=== PATIENT | male | born 1940 | race Caucasian/White ===

== ENCOUNTER 2016-05-24 14:40 | Outpatient (CLI) | payer MEDICARE ==
[2016-05-24 14:58] LABS: Blood, Urine Trace (Negative); Glucose, Urine (Dipstick) 100 mg/dL (Negative); Ketone, Urine 15 mg/dL (Negative); Nitrite Negative (Negative); Protein, Urine (Dipstick) 30 mg/dL (Neg-Trace)
[2016-05-24 15:00] LABS: Bilirubin Positive (Negative)
[2016-05-24 15:11] LABS: Bacteria/HPF Rare-Few HPF (None Seen); RBC/HPF 0-3 HPF (0-3)
[2016-05-24 15:17] LABS: ALT (SGPT) 202 U/L (0-55); AST (SGOT) 329 U/L (5-34); Alkaline Phosphatase 1103 U/L (40-150); Anion Gap 15 mmol/L (10-20); BUN (Urea Nitrogen) 15 mg/dL (8.4-25.7); Bilirubin, Total 10.5 mg/dL (0.2-1.2); CK (CPK) 13 U/L (30-200); Calc. Creatinine Clearance 0 mL/min (70-130); Calcium 9.4 mg/dL (7.8-10.44); Carbon Dioxide 26 mmol/L (23-31); Chloride 96 mmol/L (98-107); Estimated GFR-MDRD Greater than 90; Globulin 4.7 g/dL (2.4-3.5); Lipase 12 U/L (8-78); Protein, Total 7.6 g/dL (5.8-8.1)
[2016-05-24 15:22] LABS: #Basophils 0.2 thou/uL (0.0-0.2); #Eosinphils 0.1 thou/uL (0.0-0.7); #Lymphocytes 1.5 thou/uL (1.20-3.40); #Monocytes 0.7 thou/uL (0.11-0.59); #Neutrophils 17.5 thou/uL (1.40-6.50); %Basophils 0.8 % (0.0-1.0); %Eosinophils 0.5 % (0.0-10.0); %Monocytes 3.3 % (0.0-10.0); Hematocrit 37.5 % (42.0-52.0); Mean Platelet Volume 9.2 fL (7.4-10.4); Red Blood Cell (RBC) Count 3.37 mill/uL (4.70-6.10); White Blood Cell (WBC) Count 19.9 thou/uL (4.8-10.8)
[2016-05-24 21:18] LABS: Stomatocytes SLIGHT = 2-5 cells (100X) (0-1/hpf)
== END 2016-05-24 14:41 ==
LOC: HPCALD 14:40
PROVIDERS: ATTEND Family Medicine
DX: R10.13 Epigastric pain (principal); R82.99 Other abnormal findings in urine
CPT/HCPCS: 36415; 80053; 81001; 82550; 83690; 85025; 86677

== ENCOUNTER 2016-06-25 16:06 | Outpatient (CLI) | payer MEDICARE ==
[2016-06-25 16:57] LABS: ALT (SGPT) 28 U/L (0-55); AST (SGOT) 59 U/L (5-34); Albumin 3.6 g/dL (3.4-4.8); Alkaline Phosphatase 230 U/L (40-150); Anion Gap 17 mmol/L (10-20); BUN (Urea Nitrogen) 13 mg/dL (8.4-25.7); Bilirubin, Total 1.5 mg/dL (0.2-1.2); Calc. Creatinine Clearance 0 mL/min (70-130); Calcium 8.7 mg/dL (7.8-10.44); Carbon Dioxide 26 mmol/L (23-31); Chloride 99 mmol/L (98-107); Estimated GFR-MDRD Greater than 90; Globulin 3.6 g/dL (2.4-3.5); Glucose 141 mg/dL (83-110); Potassium 4.2 mmol/L (3.5-5.1); Protein, Total 7.2 g/dL (5.8-8.1); Sodium 138 mmol/L (136-145)
[2016-06-25 21:09] LABS: #Basophils 0.1 thou/uL (0.0-0.2); #Eosinphils 0.1 thou/uL (0.0-0.7); #Lymphocytes 1.7 thou/uL (1.20-3.40); #Monocytes 0.6 thou/uL (0.11-0.59); #Neutrophils 5.2 thou/uL (1.40-6.50); %Basophils 1.8 % (0.0-1.0); %Eosinophils 0.8 % (0.0-10.0); %Lymphocytes 21.7 % (21.0-51.0); %Monocytes 7.4 % (0.0-10.0); %Neutrophils 68.4 % (42.0-75.0); Hemoglobin 15.5 g/dL (14.0-18.0); MDiff Complete? YES; Macrocytosis SLIGHT = 6-15 cells (100X) (0-5/hpf); Mean Corpuscular HGB CONC 33.3 g/dL (32.0-36.0); Mean Corpuscular Hemoglobin 37.5 pg (27.0-31.0); Mean Platelet Volume 10.1 fL (7.4-10.4); PLT Morphology Comment Appears Adequate; Platelet Count 147 thou/uL (130-400); RBC Distribution Width 12.8 % (11.5-14.5); Red Blood Cell (RBC) Count 4.13 mill/uL (4.70-6.10); White Blood Cell (WBC) Count 7.6 thou/uL (4.8-10.8)
== END 2016-06-25 16:07 ==
LOC: HPCALD 16:06
PROVIDERS: ATTEND Family Medicine
DX: E80.6 Other disorders of bilirubin metabolism (principal); D72.829 Elevated white blood cell count, unspecified; R74.0 Nonspecific elevation of levels of transaminase and lactic acid dehydrogenase [LDH]
CPT/HCPCS: 36415; 80053; 85025

== ENCOUNTER 2018-05-06 14:52 | Inpatient (IN) | payer MEDICARE ==
[2018-05-06] MEDS ORDERED: Metoclopramide HCl 10 MG TAB PO PRN (17:52)
[2018-05-06] MEDS: Fluticasone Propionate Nasal Spray 16 gm Bottle NASAL SCH (22:03)
[2018-05-06] MEDS: Sotalol HCl 80 MG TAB PO SCH (22:04)
[2018-05-06] MEDS: Atorvastatin Calcium 40 MG TAB PO SCH (22:04)
[2018-05-06] MEDS: Lisinopril 20 MG TAB PO SCH (22:06)
[2018-05-06] MEDS: Famotidine 20 MG TAB PO SCH (22:06)
--- NOTE | 2018-05-07 01:36 | HP ---
CHIEF COMPLAINT: Need for skilled physical and occupational therapy. HISTORY OF PRESENT ILLNESS: Mr. Joel is a 78-year-old male with a past medical history of alcoholism, possible cirrhosis of the liver; deconditioning; and atrial fibrillation, who presented to [facility] on April 21, 2018, complaining of vomiting, nausea, weakness, and multiple falls at home. He was unable to take care of his activities of daily living and came to the ER for evaluation. He was found to be dehydrated and in atrial fibrillation with RVR. In addition, he had evidence of alcoholic hepatitis with elevated liver function tests and thrombocytopenia. The patient was admitted and given IV fluids, thiamine, and folic acid and did have some signs of alcohol withdrawal, which necessitated the use of Librium. His rate was controlled with his home regimen, which consisted of sotalol and diltiazem. However, on April 27, Code Green was activated as the patient had been progressively deteriorating overnight and an ABG showed acute respiratory acidosis with hypercapnic and hypoxic respiratory failure. He was placed on BiPAP, given steroids, antibiotics, and DuoNebs, and Pulmonology was consulted to ultimately intubated the patient for acute respiratory failure with hypercarbia and hypoxemia and the etiology of this decompensation was unclear. He was evaluated by Dr. Peterson Garcia and was able to extubate successfully. He is suspected to have COPD and from a respiratory standpoint, stabilized and is to see Pulmonology since he necessitated CCU admission in the next couple of weeks. In addition, the patient was evaluated by Cardiology and had a new echocardiogram performed on April 28 that showed LVEF 25% to 30% and he was deemed to have acute on chronic systolic heart failure. He apparently has been stabilized with Lasix 20 mg p.o. on a p.r.n. basis, beta-bety, and FAISAL inhibitor. He was evaluated by EP Cardiology and was deemed not a candidate for an ablation or an AICD unless he remains abstinent from alcohol. The patient initially was held off aspirin secondary to his thrombocytopenia. However, this resolved and so this was restarted at 325 mg daily. He also had some electrolyte abnormalities with potassium and magnesium, which were repleted. During his admission, he also had some redness developed to his sacral region without skin breakdown. He also has a similar area to one of his heels. He is also to follow up with Cardiology in a couple of weeks after his discharge, Dr. Roman. PAST MEDICAL HISTORY: 1. Alcohol abuse. 2. History of alcoholic hepatitis. 3. Cirrhosis of liver with a recent ultrasound showing hepatomegaly and decreased echogenicity. 4. Atrial fibrillation. 5. Recent history of acute respiratory failure that was suspected drug-induced delirium versus hyperammonemia. 6. Coronary artery disease. 7. COPD. 8. Systolic congestive heart failure/cardiomyopathy with echo as per HPI. 9. Hypertension. 10. Hyperlipidemia. 11. History of tobacco abuse. 12. 1.6 cm right renal cyst. PAST SURGICAL HISTORY: 1. History of stent x1 in 1998 to the coronary artery. 2. Cholecystectomy. FAMILY HISTORY: Noncontributory to this case. SOCIAL HISTORY: The patient admits to alcohol use, but claims this is "a little." He apparently was drinking enough at home to have alcohol withdrawal during the admission that resolved. He also has a history of cigar smoking. Denies illicit drug use. He lives alone. ALLERGIES: NO KNOWN DRUG ALLERGIES. MEDICATIONS: 1. Amlodipine 5 mg p.o. daily. 2. Aspirin 325 mg p.o. daily. 3. Atorvastatin calcium 40 mg p.o. at bedtime. 4. Cyanocobalamin 1000 mcg p.o. daily. 5. Diltiazem CD 120 mg p.o. daily. 6. Famotidine 20 mg p.o. b.i.d. 7. Fluticasone one spray b.i.d. per nostril. 8. Folic acid 0.8 mg p.o. daily. 9. DuoNeb q.4 hours. 10. Zestril 20 mg b.i.d. 11. Magnesium oxide 400 mg p.o. daily. 12. Metoclopramide 5 mg p.o. q.4 hours p.r.n. 13. Potassium chloride 20 mEq p.o. b.i.d. 14. Propylene glycol eyedrops one drop in each eye daily. 15. Sotalol 40 mg p.o. b.i.d. 16. Thiamine 100 mg p.o. daily. 17. Tramadol 50 mg p.o. q.6 hours p.r.n. REVIEW OF SYSTEM: CONSTITUTIONAL: Positive fatigue. Denies malaise or recent weight loss. No fever or chills. EYES: No blurred vision or eye discharge. ENT: He had some rhinorrhea at admission, but this is resolved. Denies sore throat. He reports a recent fracture of his jaw on both sides, that broke his dentures and reports some discomfort with that, but is having no trouble swallowing or chewing his food at this time. CARDIOVASCULAR: He had some chest pain initially when he was admitted, but denies any recent chest pain, orthopnea, or swelling. GI: He did have some abdominal pain with a decrease in his appetite, but this has resolved during the course of his admission. He denies diarrhea, constipation, nausea, vomiting, melena, or hematochezia. MUSCULOSKELETAL: Again, the patient reports recent jaw fracture. Denies any other joint pain. He apparently has not been able to ambulate as of yet, but previously ambulated at home with walker assist. GENITOURINARY: The patient denies any dysuria or urinary retention or voiding abnormality. HEMATOLOGIC: The patient with recent history of thrombocytopenia at that time of his admission, which has essentially resolved over the course of his hospitalization. DERMATOLOGIC: The patient has had no reported rashes. PHYSICAL EXAMINATION: VITAL SIGNS: Temperature 97.7, heart rate 74, respirations 16, O2 saturation 97% on room air, and blood pressure 160/72. GENERAL: Well-developed, thin male, in no acute distress. Alert; oriented to person, place, time, and situation; and pleasant. His speech is slightly slurred secondary to lack of dentures but he has no stuttering. HEENT: Pupils are equally round and reactive to light and accommodation, extraocular muscles are intact. Nares are patent without discharge. Tongue protrudes in the midline. NECK: Supple without lymphadenopathy, thyromegaly, JVD, or bruit. HEART: Regularly irregular with normal S1, S2. No murmurs, clicks, rubs, or gallops. LUNGS: With good air entry bilaterally and clear to auscultation. No crackles or wheezes. No increased work of breathing. ABDOMEN: Positive bowel sounds in all four quadrants. Soft, nontender, and nondistended. No masses, guarding, or rebound tenderness. EXTREMITIES: No cyanosis, clubbing, or edema. SKIN: Multiple petechia and bruising to the bilateral upper extremities without hematoma or warmth. NEUROLOGIC: Cranial nerves 2 through 12 are grossly intact without obvious focal deficits. The patient with generalized weakness. LABORATORY DATA: Most recent CBC collected today; white count 12.0, which is decreasing over time, the highest of which was 15.8 on May 04; hemoglobin 10.9, which is stable; and platelets 183 with differential. Coags done on April 22 with a normal PT, INR, and PTT. Sodium 139, potassium 3.8, chloride 101, bicarb 27, BUN 23, creatinine 0.66, glucose 146, calcium 8.5, and magnesium 1.3. Hepatitis screen performed on April 22, 2018, was nonreactive. The patient had urine culture on April 21 and blood culture x2 at that time, that were negative for growth. DIAGNOSTIC STUDIES: Last chest x-ray was performed on May 01 and showed mild worsening effusions and pulmonary edema. Abdominal ultrasound performed on April 21 showed postop cholecystectomy change. Heterogeneous-appearing liver. 1.6 cm right renal cyst. ASSESSMENT AND PLAN: 1. Generalized weakness/physical deconditioning. The patient will be admitted for skilled rehab, which will include physical and occupational therapy and a dietary consult. We will also consult Speech Therapy due to his lack of dentures and slurred speech. 2. History of heavy alcohol abuse. The patient has had Librium on a p.r.n. basis, but his period for withdrawal seems to be over at this time. We will strongly litigation counsel the patient not to resume alcohol at the time of his discharge should he be able to return home. 3. Hypertension. The patient will be continued on his current regimen. 4. Atrial fibrillation. The patient will be continued on his sotalol and his Cardizem. 5. Congestive heart failure. The patient will be continued on his lisinopril. We will order weights every other day with notification for 3-pound or more weight gain in 24 hours or a 5-pound or more weight gain in one week. We will order Lasix p.r.n. 6. Hypokalemia. We will continue his potassium and monitor his lab. 7. Hypomagnesemia. We will repeat magnesium level in a few days and continue with supplementation. 8. Chronic obstructive pulmonary disease. The patient will be continued on his DuoNebs. 9. Hyperlipidemia. The patient will be continued on his statin. 10. Coronary artery disease. Again, the patient has been able to resume his aspirin now as his platelets have improved and will be continued on his statin. He currently is off beta bety for reasons unclear, but we will continue his FAISAL inhibitor. 11. Nutritional deficiencies. The patient will be continued on his vitamin B12, thiamine, and his multivitamin. 12. Stage I pressure ulcer of sacrum and heel. We will order a waffle mattress for the patient and turn regularly. 13. Prophylaxis. The patient will be placed on SCDs and his Pepcid will be continued. 14. Code status. The patient thoroughly refuses any further attempts at intubation should that occur; therefore, has been made a do not resuscitate. This has also been discussed with the patient's son. 15. At the time of his discharge, the patient will need to be set up with Cardiology and Pulmonology for followup. Job ID: [id number]
[2018-05-07] MEDS: Folic Acid 1 MG TAB PO SCH (09:23)
[2018-05-07] MEDS: Thiamine 100 MG TAB PO SCH (09:23)
[2018-05-07] MEDS: Lisinopril 20 MG TAB PO SCH ×2 (09:23→20:56)
[2018-05-07] MEDS: Potassium Chloride 20 MEQ TAB PO SCH ×2 (09:23→16:22)
[2018-05-07] MEDS: Famotidine 20 MG TAB PO SCH ×2 (09:23→20:55)
[2018-05-07] MEDS: Aspirin 325 MG TAB PO SCH (09:23)
[2018-05-07] MEDS: Magnesium Oxide 400 MG TAB PO SCH (09:24)
[2018-05-07] MEDS: Amlodipine 5 MG TAB PO SCH (09:24)
[2018-05-07] MEDS: Sotalol HCl 80 MG TAB PO SCH ×2 (09:24→20:55)
[2018-05-07] MEDS: Fluticasone Propionate Nasal Spray 16 gm Bottle NASAL SCH ×2 (09:25→22:31)
[2018-05-07] MEDS: Cyanocobalamin (Vitamin B-12) 1,000 MCG TAB PO SCH (09:26)
[2018-05-07] MEDS: Polyethylene Glycol OPTH DROP 15 ML BOT EA EYE SCH (10:47)
[2018-05-07] MEDS: Atorvastatin Calcium 40 MG TAB PO SCH (20:55)
[2018-05-08] MEDS: Lisinopril 20 MG TAB PO SCH ×3 (01:21→21:02)
[2018-05-08 04:58] LABS: Anion Gap 14 mmol/L (10-20); BUN (Urea Nitrogen) 19 mg/dL (8.4-25.7); Calc. Creatinine Clearance 62 mL/min (70-130); Calcium 8.8 mg/dL (7.8-10.44); Carbon Dioxide 26 mmol/L (23-31); Chloride 100 mmol/L (98-107); Estimated GFR-MDRD Greater than 90; Glucose 72 mg/dL (83-110); Magnesium 1.2 mg/dL (1.6-2.6); Potassium 3.8 mmol/L (3.5-5.1); Sodium 136 mmol/L (136-145)
[2018-05-08] MEDS: Fluticasone Propionate Nasal Spray 16 gm Bottle NASAL SCH ×2 (09:59→21:02)
[2018-05-08] MEDS: Amlodipine 5 MG TAB PO SCH (10:01)
[2018-05-08] MEDS: Sotalol HCl 80 MG TAB PO SCH ×2 (10:02→21:00)
[2018-05-08] MEDS: Magnesium Oxide 400 MG TAB PO SCH (10:04)
[2018-05-08] MEDS: Famotidine 20 MG TAB PO SCH ×2 (10:04→21:01)
[2018-05-08] MEDS: Thiamine 100 MG TAB PO SCH (10:04)
[2018-05-08] MEDS: Potassium Chloride 20 MEQ TAB PO SCH ×2 (10:04→17:30)
[2018-05-08] MEDS: Folic Acid 1 MG TAB PO SCH (10:04)
[2018-05-08] MEDS: Aspirin 325 MG TAB PO SCH (10:05)
[2018-05-08] MEDS: Polyethylene Glycol OPTH DROP 15 ML BOT EA EYE SCH (10:05)
[2018-05-08] MEDS: Cyanocobalamin (Vitamin B-12) 1,000 MCG TAB PO SCH (14:40)
[2018-05-08] MEDS: traMADol HCl 50 MG TAB PO PRN (20:59)
[2018-05-08] MEDS: Atorvastatin Calcium 40 MG TAB PO SCH (21:02)
[2018-05-09] MEDS: Potassium Chloride 20 MEQ TAB PO SCH ×2 (08:58→17:32)
[2018-05-09] MEDS: Polyethylene Glycol OPTH DROP 15 ML BOT EA EYE SCH (08:58)
[2018-05-09] MEDS: Famotidine 20 MG TAB PO SCH ×2 (08:59→20:52)
[2018-05-09] MEDS: Folic Acid 1 MG TAB PO SCH (08:59)
[2018-05-09] MEDS: Cyanocobalamin (Vitamin B-12) 1,000 MCG TAB PO SCH (08:59)
[2018-05-09] MEDS: Magnesium Oxide 400 MG TAB PO SCH ×2 (08:59→20:43)
[2018-05-09] MEDS: Fluticasone Propionate Nasal Spray 16 gm Bottle NASAL SCH ×2 (09:00→20:52)
[2018-05-09] MEDS: Aspirin 325 MG TAB PO SCH (09:00)
[2018-05-09] MEDS: Thiamine 100 MG TAB PO SCH (09:00)
[2018-05-09] MEDS: Amlodipine 5 MG TAB PO SCH (10:09)
[2018-05-09] MEDS: Lisinopril 20 MG TAB PO SCH ×2 (10:10→20:51)
[2018-05-09] MEDS: Sotalol HCl 80 MG TAB PO SCH ×2 (10:10→20:43)
[2018-05-09] MEDS: traMADol HCl 50 MG TAB PO PRN (17:35)
[2018-05-09] MEDS: Atorvastatin Calcium 40 MG TAB PO SCH (20:43)
[2018-05-10] MEDS: traMADol HCl 50 MG TAB PO PRN (01:18)
[2018-05-10] MEDS: Polyethylene Glycol OPTH DROP 15 ML BOT EA EYE SCH (09:10)
[2018-05-10] MEDS: Fluticasone Propionate Nasal Spray 16 gm Bottle NASAL SCH ×2 (09:10→22:31)
[2018-05-10] MEDS: Magnesium Oxide 400 MG TAB PO SCH ×2 (09:11→21:00)
[2018-05-10] MEDS: Thiamine 100 MG TAB PO SCH (09:11)
[2018-05-10] MEDS: Amlodipine 5 MG TAB PO SCH (09:12)
[2018-05-10] MEDS: Aspirin 325 MG TAB PO SCH (09:12)
[2018-05-10] MEDS: Sotalol HCl 80 MG TAB PO SCH ×2 (09:12→20:58)
[2018-05-10] MEDS: Lisinopril 20 MG TAB PO SCH ×2 (09:13→22:31)
[2018-05-10] MEDS: Folic Acid 1 MG TAB PO SCH (09:13)
[2018-05-10] MEDS: Famotidine 20 MG TAB PO SCH ×2 (09:13→21:00)
[2018-05-10] MEDS: Cyanocobalamin (Vitamin B-12) 1,000 MCG TAB PO SCH (09:13)
[2018-05-10] MEDS: Potassium Chloride 20 MEQ TAB PO SCH ×2 (09:14→16:56)
[2018-05-10] MEDS: Ibuprofen 200 MG TAB PO PRN (16:56)
[2018-05-10] MEDS: Atorvastatin Calcium 40 MG TAB PO SCH (21:00)
[2018-05-11] MEDS: Ibuprofen 200 MG TAB PO PRN ×2 (08:24→21:03)
[2018-05-11] MEDS: Lisinopril 20 MG TAB PO SCH ×2 (08:24→20:58)
[2018-05-11] MEDS: Amlodipine 5 MG TAB PO SCH (08:25)
[2018-05-11] MEDS: Aspirin 325 MG TAB PO SCH (08:25)
[2018-05-11] MEDS: Folic Acid 1 MG TAB PO SCH (08:28)
[2018-05-11] MEDS: Famotidine 20 MG TAB PO SCH ×2 (08:29→20:57)
[2018-05-11] MEDS: Magnesium Oxide 400 MG TAB PO SCH ×2 (08:29→20:57)
[2018-05-11] MEDS: Cyanocobalamin (Vitamin B-12) 1,000 MCG TAB PO SCH (08:29)
[2018-05-11] MEDS: Sotalol HCl 80 MG TAB PO SCH ×2 (08:30→20:57)
[2018-05-11] MEDS: Polyethylene Glycol OPTH DROP 15 ML BOT EA EYE SCH (08:31)
[2018-05-11] MEDS: Potassium Chloride 20 MEQ TAB PO SCH ×2 (08:31→17:04)
[2018-05-11] MEDS: Thiamine 100 MG TAB PO SCH (08:32)
[2018-05-11] MEDS: Fluticasone Propionate Nasal Spray 16 gm Bottle NASAL SCH ×2 (08:32→20:58)
[2018-05-11] MEDS: Atorvastatin Calcium 40 MG TAB PO SCH (20:57)
[2018-05-11] MEDS: traMADol HCl 50 MG TAB PO PRN (21:02)
[2018-05-12 05:37] LABS: Anion Gap 14 mmol/L (10-20); BUN (Urea Nitrogen) 12 mg/dL (8.4-25.7); Calc. Creatinine Clearance 72 mL/min (70-130); Calcium 9.6 mg/dL (7.8-10.44); Carbon Dioxide 24 mmol/L (23-31); Chloride 102 mmol/L (98-107); Estimated GFR-MDRD Greater than 90; Glucose 92 mg/dL (83-110); Magnesium 1.5 mg/dL (1.6-2.6); Potassium 4.9 mmol/L (3.5-5.1); Sodium 135 mmol/L (136-145)
[2018-05-12 05:44] LABS: #Eosinphils 0.2 thou/uL (0.0-0.7); #Lymphocytes 1.2 thou/uL (1.20-3.40); #Monocytes 0.4 thou/uL (0.11-0.59); %Basophils 0.4 % (0.0-1.0); %Eosinophils 1.9 % (0.0-10.0); %Lymphocytes 10.7 % (21.0-51.0); %Monocytes 3.3 % (0.0-10.0); %Neutrophils 83.8 % (42.0-75.0); Hemoglobin 10.5 g/dL (14.0-18.0); MDiff Complete? YES; Macrocytosis SLIGHT = 6-15 cells (100X) (0-5/hpf); Mean Corpuscular HGB CONC 32.9 g/dL (32.0-36.0); Mean Corpuscular Hemoglobin 36.1 pg (27.0-31.0); Mean Platelet Volume 13.5 fL (7.4-10.4); Neutrophil 100 % (42-75); Platelet Count 141 thou/uL (130-400); Platelet Morphology Comment Appears Decreased; RBC Distribution Width 13.9 % (11.5-14.5); White Blood Cell (WBC) Count 10.7 thou/uL (4.8-10.8)
[2018-05-12] MEDS: traMADol HCl 50 MG TAB PO PRN (09:22)
[2018-05-12] MEDS: Potassium Chloride 20 MEQ TAB PO SCH ×2 (09:35→16:30)
[2018-05-12] MEDS: Magnesium Oxide 400 MG TAB PO SCH ×2 (09:36→20:59)
[2018-05-12] MEDS: Folic Acid 1 MG TAB PO SCH (09:37)
[2018-05-12] MEDS: Sotalol HCl 80 MG TAB PO SCH ×2 (09:37→20:59)
[2018-05-12] MEDS: Thiamine 100 MG TAB PO SCH (09:37)
[2018-05-12] MEDS: Cyanocobalamin (Vitamin B-12) 1,000 MCG TAB PO SCH (09:37)
[2018-05-12] MEDS: Famotidine 20 MG TAB PO SCH ×2 (09:37→20:59)
[2018-05-12] MEDS: Lisinopril 20 MG TAB PO SCH ×2 (09:37→20:58)
[2018-05-12] MEDS: Aspirin 325 MG TAB PO SCH (09:38)
[2018-05-12] MEDS: Fluticasone Propionate Nasal Spray 16 gm Bottle NASAL SCH ×2 (09:39→20:58)
[2018-05-12] MEDS: Polyethylene Glycol OPTH DROP 15 ML BOT EA EYE SCH (09:40)
[2018-05-12] MEDS: Ibuprofen 200 MG TAB PO PRN (13:09)
[2018-05-12] MEDS: Atorvastatin Calcium 40 MG TAB PO SCH (20:58)
[2018-05-13] MEDS: Fluticasone Propionate Nasal Spray 16 gm Bottle NASAL SCH ×2 (09:02→21:06)
[2018-05-13] MEDS: Polyethylene Glycol OPTH DROP 15 ML BOT EA EYE SCH (09:03)
[2018-05-13] MEDS: Thiamine 100 MG TAB PO SCH (09:04)
[2018-05-13] MEDS: Cyanocobalamin (Vitamin B-12) 1,000 MCG TAB PO SCH (09:04)
[2018-05-13] MEDS: Famotidine 20 MG TAB PO SCH ×2 (09:04→21:07)
[2018-05-13] MEDS: Aspirin 325 MG TAB PO SCH (09:04)
[2018-05-13] MEDS: Lisinopril 20 MG TAB PO SCH ×2 (09:04→21:07)
[2018-05-13] MEDS: Magnesium Oxide 400 MG TAB PO SCH ×2 (09:04→21:07)
[2018-05-13] MEDS: Potassium Chloride 20 MEQ TAB PO SCH ×2 (09:05→16:00)
[2018-05-13] MEDS: Sotalol HCl 80 MG TAB PO SCH ×2 (09:05→21:08)
[2018-05-13] MEDS: Folic Acid 1 MG TAB PO SCH (09:05)
[2018-05-13] MEDS: traMADol HCl 50 MG TAB PO PRN (09:11)
[2018-05-13] MEDS: Ibuprofen 200 MG TAB PO PRN (16:00)
[2018-05-13] MEDS: Atorvastatin Calcium 40 MG TAB PO SCH (21:07)
[2018-05-14] MEDS: Ibuprofen 200 MG TAB PO PRN ×2 (04:06→12:20)
[2018-05-14] MEDS: Fluticasone Propionate Nasal Spray 16 gm Bottle NASAL SCH ×2 (08:32→21:11)
[2018-05-14] MEDS: Magnesium Oxide 400 MG TAB PO SCH ×2 (08:32→21:08)
[2018-05-14] MEDS: Thiamine 100 MG TAB PO SCH (08:32)
[2018-05-14] MEDS: Aspirin 325 MG TAB PO SCH (08:32)
[2018-05-14] MEDS: Polyethylene Glycol OPTH DROP 15 ML BOT EA EYE SCH (08:32)
[2018-05-14] MEDS: Famotidine 20 MG TAB PO SCH ×2 (08:32→21:08)
[2018-05-14] MEDS: Sotalol HCl 80 MG TAB PO SCH ×2 (08:33→21:08)
[2018-05-14] MEDS: Potassium Chloride 20 MEQ TAB PO SCH ×2 (08:33→17:07)
[2018-05-14] MEDS: Cyanocobalamin (Vitamin B-12) 1,000 MCG TAB PO SCH (08:33)
[2018-05-14] MEDS: Folic Acid 1 MG TAB PO SCH (08:33)
[2018-05-14] MEDS: Lisinopril 20 MG TAB PO SCH ×2 (08:35→21:08)
[2018-05-14] MEDS: traMADol HCl 50 MG TAB PO PRN (17:12)
[2018-05-14] MEDS: Atorvastatin Calcium 40 MG TAB PO SCH (21:08)
[2018-05-15] MEDS: Ibuprofen 200 MG TAB PO PRN ×2 (00:14→08:37)
[2018-05-15] MEDS: traMADol HCl 50 MG TAB PO PRN ×2 (05:27→11:40)
[2018-05-15] MEDS: Fluticasone Propionate Nasal Spray 16 gm Bottle NASAL SCH ×2 (08:36→21:00)
[2018-05-15] MEDS: Potassium Chloride 20 MEQ TAB PO SCH ×2 (08:37→17:58)
[2018-05-15] MEDS: Magnesium Oxide 400 MG TAB PO SCH ×2 (08:37→20:59)
[2018-05-15] MEDS: Polyethylene Glycol OPTH DROP 15 ML BOT EA EYE SCH (08:37)
[2018-05-15] MEDS: Sotalol HCl 80 MG TAB PO SCH ×2 (08:38→20:59)
[2018-05-15] MEDS: Folic Acid 1 MG TAB PO SCH (08:38)
[2018-05-15] MEDS: Lisinopril 20 MG TAB PO SCH ×2 (08:39→20:59)
[2018-05-15] MEDS: Aspirin 325 MG TAB PO SCH (08:41)
[2018-05-15] MEDS: Thiamine 100 MG TAB PO SCH (08:41)
[2018-05-15] MEDS: Cyanocobalamin (Vitamin B-12) 1,000 MCG TAB PO SCH (08:41)
[2018-05-15] MEDS: Famotidine 20 MG TAB PO SCH ×2 (08:41→20:59)
[2018-05-15] MEDS: Atorvastatin Calcium 40 MG TAB PO SCH (20:59)
[2018-05-16] MEDS: Ibuprofen 200 MG TAB PO PRN ×2 (05:27→15:07)
[2018-05-16] MEDS: Sotalol HCl 80 MG TAB PO SCH ×2 (08:37→20:58)
[2018-05-16] MEDS: Aspirin 325 MG TAB PO SCH (08:39)
[2018-05-16] MEDS: Folic Acid 1 MG TAB PO SCH (08:39)
[2018-05-16] MEDS: Magnesium Oxide 400 MG TAB PO SCH ×2 (08:40→20:57)
[2018-05-16] MEDS: Famotidine 20 MG TAB PO SCH ×2 (08:40→20:56)
[2018-05-16] MEDS: Thiamine 100 MG TAB PO SCH ×2 (08:40→08:41)
[2018-05-16] MEDS: Potassium Chloride 20 MEQ TAB PO SCH ×2 (08:41→17:18)
[2018-05-16] MEDS: Polyethylene Glycol OPTH DROP 15 ML BOT EA EYE SCH (08:42)
[2018-05-16] MEDS: Fluticasone Propionate Nasal Spray 16 gm Bottle NASAL SCH ×2 (08:45→20:58)
[2018-05-16] MEDS: Cyanocobalamin (Vitamin B-12) 1,000 MCG TAB PO SCH (08:47)
[2018-05-16] MEDS: Lisinopril 20 MG TAB PO SCH ×2 (08:47→20:56)
[2018-05-16 09:00] LABS: Anion Gap 13 mmol/L (10-20); BUN (Urea Nitrogen) 14 mg/dL (8.4-25.7); Calc. Creatinine Clearance 60 mL/min (70-130); Calcium 9.5 mg/dL (7.8-10.44); Carbon Dioxide 23 mmol/L (23-31); Chloride 101 mmol/L (98-107); Estimated GFR-MDRD Greater than 90; Glucose 108 mg/dL (83-110); Magnesium 1.3 mg/dL (1.6-2.6); Potassium 5.1 mmol/L (3.5-5.1); Sodium 132 mmol/L (136-145)
[2018-05-16] MEDS: traMADol HCl 50 MG TAB PO PRN ×2 (11:38→20:57)
[2018-05-16] MEDS: Atorvastatin Calcium 40 MG TAB PO SCH (20:57)
[2018-05-17] MEDS: Fluticasone Propionate Nasal Spray 16 gm Bottle NASAL SCH ×2 (09:13→21:10)
[2018-05-17] MEDS: Aspirin 325 MG TAB PO SCH (09:14)
[2018-05-17] MEDS: Sotalol HCl 80 MG TAB PO SCH ×2 (09:15→21:58)
[2018-05-17] MEDS: Thiamine 100 MG TAB PO SCH (09:16)
[2018-05-17] MEDS: Ibuprofen 200 MG TAB PO PRN ×2 (09:16→17:29)
[2018-05-17] MEDS: Famotidine 20 MG TAB PO SCH ×2 (09:16→21:10)
[2018-05-17] MEDS: Magnesium Oxide 400 MG TAB PO SCH ×2 (09:17→21:10)
[2018-05-17] MEDS: Cyanocobalamin (Vitamin B-12) 1,000 MCG TAB PO SCH (09:17)
[2018-05-17] MEDS: Folic Acid 1 MG TAB PO SCH (09:17)
[2018-05-17] MEDS: Lisinopril 20 MG TAB PO SCH ×2 (09:17→21:57)
[2018-05-17] MEDS: Potassium Chloride 20 MEQ TAB PO SCH (09:17)
[2018-05-17] MEDS: Polyethylene Glycol OPTH DROP 15 ML BOT EA EYE SCH (09:18)
[2018-05-17] MEDS: Atorvastatin Calcium 40 MG TAB PO SCH (21:10)
[2018-05-18] MEDS: Ibuprofen 200 MG TAB PO PRN ×3 (06:38→21:27)
[2018-05-18] MEDS: Famotidine 20 MG TAB PO SCH ×2 (09:50→21:27)
[2018-05-18] MEDS: Lisinopril 20 MG TAB PO SCH ×2 (09:50→21:34)
[2018-05-18] MEDS: Magnesium Oxide 400 MG TAB PO SCH ×2 (09:56→21:27)
[2018-05-18] MEDS: Aspirin 325 MG TAB PO SCH (09:56)
[2018-05-18] MEDS: Potassium Chloride 20 MEQ TAB PO SCH (09:57)
[2018-05-18] MEDS: Sotalol HCl 80 MG TAB PO SCH ×2 (09:57→21:33)
[2018-05-18] MEDS: Polyethylene Glycol OPTH DROP 15 ML BOT EA EYE SCH (09:58)
[2018-05-18] MEDS: Fluticasone Propionate Nasal Spray 16 gm Bottle NASAL SCH ×2 (09:58→21:27)
[2018-05-18] MEDS: Folic Acid 1 MG TAB PO SCH (09:59)
[2018-05-18] MEDS: Cyanocobalamin (Vitamin B-12) 1,000 MCG TAB PO SCH (09:59)
[2018-05-18] MEDS: traMADol HCl 50 MG TAB PO PRN (12:09)
[2018-05-18] MEDS: Atorvastatin Calcium 40 MG TAB PO SCH (21:27)
[2018-05-19] MEDS: traMADol HCl 50 MG TAB PO PRN ×3 (02:52→19:56)
[2018-05-19] MEDS: Ibuprofen 200 MG TAB PO PRN ×3 (05:05→22:09)
[2018-05-19] MEDS: Polyethylene Glycol OPTH DROP 15 ML BOT EA EYE SCH (10:11)
[2018-05-19] MEDS: Aspirin 325 MG TAB PO SCH (10:14)
[2018-05-19] MEDS: Sotalol HCl 80 MG TAB PO SCH ×2 (10:15→20:43)
[2018-05-19] MEDS: Lisinopril 20 MG TAB PO SCH ×2 (10:15→20:45)
[2018-05-19] MEDS: Potassium Chloride 20 MEQ TAB PO SCH (10:16)
[2018-05-19] MEDS: Thiamine 100 MG TAB PO SCH (10:16)
[2018-05-19] MEDS: Folic Acid 1 MG TAB PO SCH (10:16)
[2018-05-19] MEDS: Magnesium Oxide 400 MG TAB PO SCH ×2 (10:16→20:45)
[2018-05-19] MEDS: Cyanocobalamin (Vitamin B-12) 1,000 MCG TAB PO SCH (10:17)
[2018-05-19] MEDS: Fluticasone Propionate Nasal Spray 16 gm Bottle NASAL SCH ×2 (10:17→20:45)
[2018-05-19] MEDS: Famotidine 20 MG TAB PO SCH ×2 (11:38→20:44)
[2018-05-19] MEDS: Atorvastatin Calcium 40 MG TAB PO SCH (20:45)
[2018-05-20] MEDS: Ibuprofen 200 MG TAB PO PRN ×2 (06:26→15:39)
[2018-05-20] MEDS: Fluticasone Propionate Nasal Spray 16 gm Bottle NASAL SCH ×2 (09:00→21:56)
[2018-05-20] MEDS: Aspirin 325 MG TAB PO SCH (09:01)
[2018-05-20] MEDS: Thiamine 100 MG TAB PO SCH (09:01)
[2018-05-20] MEDS: Potassium Chloride 20 MEQ TAB PO SCH (09:01)
[2018-05-20] MEDS: Cyanocobalamin (Vitamin B-12) 1,000 MCG TAB PO SCH (09:01)
[2018-05-20] MEDS: Famotidine 20 MG TAB PO SCH ×2 (09:02→21:56)
[2018-05-20] MEDS: Magnesium Oxide 400 MG TAB PO SCH ×2 (09:02→21:56)
[2018-05-20] MEDS: Folic Acid 1 MG TAB PO SCH (09:02)
[2018-05-20] MEDS: Polyethylene Glycol OPTH DROP 15 ML BOT EA EYE SCH (09:03)
[2018-05-20] MEDS: Lisinopril 20 MG TAB PO SCH (09:03)
[2018-05-20] MEDS: Sotalol HCl 80 MG TAB PO SCH (09:03)
[2018-05-20] MEDS: traMADol HCl 50 MG TAB PO PRN (12:39)
[2018-05-20] MEDS: Acetaminophen 325 MG TAB PO PRN (21:55)
[2018-05-20] MEDS: Atorvastatin Calcium 40 MG TAB PO SCH (21:56)
[2018-05-21] MEDS: Ibuprofen 200 MG TAB PO PRN ×2 (06:08→14:38)
[2018-05-21] MEDS: Potassium Chloride 20 MEQ TAB PO SCH (09:21)
[2018-05-21] MEDS: Magnesium Oxide 400 MG TAB PO SCH ×2 (09:22→21:48)
[2018-05-21] MEDS: Famotidine 20 MG TAB PO SCH ×2 (09:22→21:48)
[2018-05-21] MEDS: Lisinopril 10 MG TAB PO SCH (09:22)
[2018-05-21] MEDS: Thiamine 100 MG TAB PO SCH (09:23)
[2018-05-21] MEDS: Cyanocobalamin (Vitamin B-12) 1,000 MCG TAB PO SCH (09:23)
[2018-05-21] MEDS: Folic Acid 1 MG TAB PO SCH (09:23)
[2018-05-21] MEDS: Aspirin 325 MG TAB PO SCH (09:23)
[2018-05-21] MEDS: Fluticasone Propionate Nasal Spray 16 gm Bottle NASAL SCH ×2 (09:24→21:48)
[2018-05-21] MEDS: Polyethylene Glycol OPTH DROP 15 ML BOT EA EYE SCH (09:24)
[2018-05-21] MEDS: Atorvastatin Calcium 40 MG TAB PO SCH (21:48)
[2018-05-21] MEDS: Acetaminophen 325 MG TAB PO PRN (21:53)
[2018-05-22 05:33] LABS: Anion Gap 14 mmol/L (10-20); BUN (Urea Nitrogen) 13 mg/dL (8.4-25.7); Calc. Creatinine Clearance 67 mL/min (70-130); Calcium 9.5 mg/dL (7.8-10.44); Carbon Dioxide 22 mmol/L (23-31); Chloride 105 mmol/L (98-107); Estimated GFR-MDRD Greater than 90; Glucose 89 mg/dL (83-110); Magnesium 1.7 mg/dL (1.6-2.6); Potassium 4.7 mmol/L (3.5-5.1); Sodium 136 mmol/L (136-145)
[2018-05-22] MEDS: Acetaminophen 325 MG TAB PO PRN ×2 (06:40→18:21)
[2018-05-22] MEDS: Aspirin 325 MG TAB PO SCH (08:42)
[2018-05-22] MEDS: Lisinopril 10 MG TAB PO SCH (08:42)
[2018-05-22] MEDS: Magnesium Oxide 400 MG TAB PO SCH ×2 (08:42→21:46)
[2018-05-22] MEDS: Potassium Chloride 20 MEQ TAB PO SCH (08:42)
[2018-05-22] MEDS: Folic Acid 1 MG TAB PO SCH (08:43)
[2018-05-22] MEDS: Cyanocobalamin (Vitamin B-12) 1,000 MCG TAB PO SCH (08:43)
[2018-05-22] MEDS: Thiamine 100 MG TAB PO SCH (08:43)
[2018-05-22] MEDS: Famotidine 20 MG TAB PO SCH ×2 (08:43→21:46)
[2018-05-22] MEDS: Polyethylene Glycol OPTH DROP 15 ML BOT EA EYE SCH (08:44)
[2018-05-22] MEDS: Fluticasone Propionate Nasal Spray 16 gm Bottle NASAL SCH ×2 (08:44→21:47)
[2018-05-22] MEDS: Ibuprofen 200 MG TAB PO PRN ×2 (12:47→21:46)
[2018-05-22] MEDS: traMADol HCl 50 MG TAB PO PRN (19:52)
[2018-05-22] MEDS: Atorvastatin Calcium 40 MG TAB PO SCH (21:46)
[2018-05-23] MEDS: Acetaminophen 325 MG TAB PO PRN ×2 (06:12→15:07)
[2018-05-23] MEDS: Fluticasone Propionate Nasal Spray 16 gm Bottle NASAL SCH ×2 (10:41→20:50)
[2018-05-23] MEDS: Polyethylene Glycol OPTH DROP 15 ML BOT EA EYE SCH (10:42)
[2018-05-23] MEDS: Magnesium Oxide 400 MG TAB PO SCH ×2 (10:44→20:49)
[2018-05-23] MEDS: Aspirin 325 MG TAB PO SCH (10:45)
[2018-05-23] MEDS: Potassium Chloride 20 MEQ TAB PO SCH (10:45)
[2018-05-23] MEDS: Cyanocobalamin (Vitamin B-12) 1,000 MCG TAB PO SCH (10:45)
[2018-05-23] MEDS: Folic Acid 1 MG TAB PO SCH (10:45)
[2018-05-23] MEDS: Thiamine 100 MG TAB PO SCH (10:46)
[2018-05-23] MEDS: Lisinopril 10 MG TAB PO SCH (10:46)
[2018-05-23] MEDS: Famotidine 20 MG TAB PO SCH ×2 (10:46→20:50)
[2018-05-23] MEDS: Ibuprofen 200 MG TAB PO PRN ×2 (10:59→20:56)
[2018-05-23] MEDS: Atorvastatin Calcium 40 MG TAB PO SCH (20:49)
[2018-05-24] MEDS: Ibuprofen 200 MG TAB PO PRN ×2 (04:50→14:17)
[2018-05-24] MEDS: Fluticasone Propionate Nasal Spray 16 gm Bottle NASAL SCH ×2 (10:03→20:33)
[2018-05-24] MEDS: Polyethylene Glycol OPTH DROP 15 ML BOT EA EYE SCH (10:04)
[2018-05-24] MEDS: Potassium Chloride 20 MEQ TAB PO SCH (10:04)
[2018-05-24] MEDS: Magnesium Oxide 400 MG TAB PO SCH ×2 (10:05→20:35)
[2018-05-24] MEDS: Famotidine 20 MG TAB PO SCH ×2 (10:05→20:35)
[2018-05-24] MEDS: Cyanocobalamin (Vitamin B-12) 1,000 MCG TAB PO SCH (10:05)
[2018-05-24] MEDS: Folic Acid 1 MG TAB PO SCH (10:05)
[2018-05-24] MEDS: Thiamine 100 MG TAB PO SCH (10:05)
[2018-05-24] MEDS: Lisinopril 10 MG TAB PO SCH (10:06)
[2018-05-24] MEDS: Aspirin 325 MG TAB PO SCH (10:06)
[2018-05-24] MEDS: Acetaminophen 325 MG TAB PO PRN ×2 (10:06→20:34)
[2018-05-24] MEDS: Atorvastatin Calcium 40 MG TAB PO SCH (20:35)
[2018-05-25] MEDS: Ibuprofen 200 MG TAB PO PRN ×3 (01:21→21:17)
[2018-05-25] MEDS: Fluticasone Propionate Nasal Spray 16 gm Bottle NASAL SCH ×2 (08:55→21:07)
[2018-05-25] MEDS: Polyethylene Glycol OPTH DROP 15 ML BOT EA EYE SCH (08:55)
[2018-05-25] MEDS: Cyanocobalamin (Vitamin B-12) 1,000 MCG TAB PO SCH (08:58)
[2018-05-25] MEDS: Lisinopril 10 MG TAB PO SCH (08:58)
[2018-05-25] MEDS: Thiamine 100 MG TAB PO SCH (08:58)
[2018-05-25] MEDS: Famotidine 20 MG TAB PO SCH ×2 (08:59→21:07)
[2018-05-25] MEDS: Aspirin 325 MG TAB PO SCH (08:59)
[2018-05-25] MEDS: Potassium Chloride 20 MEQ TAB PO SCH (09:00)
[2018-05-25] MEDS: Folic Acid 1 MG TAB PO SCH (09:00)
[2018-05-25] MEDS: Magnesium Oxide 400 MG TAB PO SCH ×2 (09:01→21:06)
[2018-05-25] MEDS: Acetaminophen 325 MG TAB PO PRN ×2 (09:07→18:09)
[2018-05-25] MEDS: Atorvastatin Calcium 40 MG TAB PO SCH (21:07)
[2018-05-26] MEDS: Acetaminophen 325 MG TAB PO PRN ×3 (06:19→20:20)
[2018-05-26] MEDS: Potassium Chloride 20 MEQ TAB PO SCH (08:52)
[2018-05-26] MEDS: Polyethylene Glycol OPTH DROP 15 ML BOT EA EYE SCH (09:20)
[2018-05-26] MEDS: Aspirin 325 MG TAB PO SCH (09:21)
[2018-05-26] MEDS: Famotidine 20 MG TAB PO SCH ×2 (09:21→20:20)
[2018-05-26] MEDS: Thiamine 100 MG TAB PO SCH (09:21)
[2018-05-26] MEDS: Magnesium Oxide 400 MG TAB PO SCH ×2 (09:21→20:20)
[2018-05-26] MEDS: Cyanocobalamin (Vitamin B-12) 1,000 MCG TAB PO SCH (09:21)
[2018-05-26] MEDS: Folic Acid 1 MG TAB PO SCH (09:22)
[2018-05-26] MEDS: traMADol HCl 50 MG TAB PO PRN (09:22)
[2018-05-26] MEDS: Lisinopril 10 MG TAB PO SCH (09:22)
[2018-05-26] MEDS: Fluticasone Propionate Nasal Spray 16 gm Bottle NASAL SCH ×2 (09:23→20:20)
[2018-05-26] MEDS: Atorvastatin Calcium 40 MG TAB PO SCH (20:20)
[2018-05-27] MEDS: Acetaminophen 325 MG TAB PO PRN (03:02)
[2018-05-27] MEDS: traMADol HCl 50 MG TAB PO PRN (08:20)
[2018-05-27] MEDS: Fluticasone Propionate Nasal Spray 16 gm Bottle NASAL SCH ×2 (08:22→20:26)
[2018-05-27] MEDS: Folic Acid 1 MG TAB PO SCH (08:23)
[2018-05-27] MEDS: Aspirin 325 MG TAB PO SCH (08:23)
[2018-05-27] MEDS: Potassium Chloride 20 MEQ TAB PO SCH (08:23)
[2018-05-27] MEDS: Famotidine 20 MG TAB PO SCH ×2 (08:23→20:28)
[2018-05-27] MEDS: Lisinopril 10 MG TAB PO SCH (08:23)
[2018-05-27] MEDS: Cyanocobalamin (Vitamin B-12) 1,000 MCG TAB PO SCH (08:24)
[2018-05-27] MEDS: Magnesium Oxide 400 MG TAB PO SCH ×2 (08:24→20:28)
[2018-05-27] MEDS: Polyethylene Glycol OPTH DROP 15 ML BOT EA EYE SCH (08:25)
[2018-05-27] MEDS: Thiamine 100 MG TAB PO SCH (08:25)
[2018-05-27] MEDS: Ibuprofen 200 MG TAB PO PRN (11:45)
[2018-05-27] MEDS: Atorvastatin Calcium 40 MG TAB PO SCH (20:28)
[2018-05-28 05:04] VITALS: BMI 15.6
[2018-05-28] MEDS: Ibuprofen 200 MG TAB PO PRN ×2 (05:10→05:24)
[2018-05-28] MEDS: Famotidine 20 MG TAB PO SCH (09:11)
[2018-05-28] MEDS: Potassium Chloride 20 MEQ TAB PO SCH (09:11)
[2018-05-28] MEDS: Cyanocobalamin (Vitamin B-12) 1,000 MCG TAB PO SCH (09:12)
[2018-05-28] MEDS: Magnesium Oxide 400 MG TAB PO SCH (09:12)
[2018-05-28] MEDS: Folic Acid 1 MG TAB PO SCH (09:13)
[2018-05-28] MEDS: Polyethylene Glycol OPTH DROP 15 ML BOT EA EYE SCH (09:13)
[2018-05-28] MEDS: Lisinopril 10 MG TAB PO SCH (09:13)
[2018-05-28] MEDS: Fluticasone Propionate Nasal Spray 16 gm Bottle NASAL SCH (09:13)
[2018-05-28] MEDS: Thiamine 100 MG TAB PO SCH (09:13)
[2018-05-28] MEDS: Aspirin 325 MG TAB PO SCH (09:15)
[2018-05-28] MEDS: traMADol HCl 50 MG TAB PO PRN ×2 (09:19→16:20)
[2018-05-28 16:54] VITALS: BP 102/50; TEMP 98.2
--- NOTE | 2018-05-29 00:22 | DIS ---
DATE OF ADMISSION: 05/06/2018 DATE OF DISCHARGE: 05/28/2018 ADMISSION DIAGNOSES: 1. Generalized weakness/physical deconditioning. 2. History of heavy alcohol abuse. 3. Hypertension. 4. Atrial fibrillation. 5. Congestive heart failure. 6. Hypokalemia. 7. Hypomagnesemia. 8. Chronic obstructive pulmonary disease. 9. Hyperlipidemia. 10. Coronary artery disease. 11. Nutritional deficiencies. 12. Stage I pressure ulcer of sacrum and heel. DISCHARGE DIAGNOSES: 1. Generalized weakness/physical deconditioning. 2. History of heavy alcohol abuse. 3. Hypertension. 4. Atrial fibrillation. 5. Congestive heart failure. 6. Hypokalemia. 7. Hypomagnesemia. 8. Chronic obstructive pulmonary disease. 9. Hyperlipidemia. 10. Coronary artery disease. 11. Nutritional deficiencies. 12. Stage I pressure ulcer of sacrum and heel. 13. Dysphagia. HISTORY AND PHYSICAL: Please see dictated report from skilled admission date. PRISON COURSE: Mr. Joel is a 78-year-old male, who was admitted for physical, occupational, and speech therapy after a [facility] admission on April 21, in which he presented complaining of vomiting, nausea, weakness, and multiple falls at home. He was unable to take care of his activities of daily living. He had further evaluation and was found to be dehydrated and in atrial fibrillation with RVR. In addition, he had evidence of alcoholic hepatitis with elevated liver function tests and thrombocytopenia. His dehydration was improved with IV fluids and his nutritional deficiencies were supplemented, and he did exhibit some signs of alcohol withdrawal during that admission. He also had a Code Green due to a progressive deterioration overnight, in which he was ultimately intubated for acute respiratory failure with hypercarbia and hypoxemia, and the etiology of this decompensation was unclear after further investigation. He was extubated successfully and was suspected to have COPD; and from a respiratory standpoint, was stabilized, and his atrial fibrillation was rate controlled with a new echocardiogram done showing a left ventricular ejection fraction of 25% to 30% on April 28, and was stabilized for that. He was deemed not a candidate for an ablation or an AICD unless he were to remain abstinent from alcohol. He was initially held off his aspirin secondary to thrombocytopenia; however, this resolved, and so it was restarted. He also had some skin breakdown during his admission. He transferred here and Physical and Occupational therapy evaluated the patient, and he progressed to minimal assist with transfers, but still needing 24-hour supervision, but essentially almost able to take care of his ADLs on his own. Per patient and family, they eventually decided on hospice care in the home and care transitioned to this pathway. Regarding his history of heavy alcohol abuse, he exhibited no signs of withdrawal during his hospitalization, and he was strongly counseled not to resume at the time of his discharge. Regarding his hypertension, he initially was continued on the hospital regimen, but had some periods of hypotension, which necessitated adjustment. His amlodipine was discontinued and his Zestril was cut back to 10 mg once daily. His sotalol was held secondary to the low blood pressure, which improved after the reduction in the Zestril, and these two agents will be continued at discharge with instructions to hold the sotalol for a systolic blood pressure of less than 105 or a heart rate of less than 60. Regarding his atrial fibrillation, again his sotalol had to be held several times while we were adjusting his blood pressure medications. He is not a candidate for anticoagulation secondary to multiple falls, but his aspirin has been continued now as his platelet count improved. Regarding his congestive heart failure, again the patient is on FAISAL inhibitor and beta bety, and we monitored his intake and outtake and weights, and did not have to give Lasix during his hospital stay as he remained euvolemic. The patient had hypokalemia and hypomagnesemia, which were corrected with adjustment of supplements, and last potassium on May 22 was 4.7, and magnesium 1.7 on the same date. COPD. The patient was given DuoNebs p.r.n. and he will go home with those. Regarding his hyperlipidemia, his statin was continued during his hospitalization. Regarding his coronary artery disease, he is on statin and FAISAL inhibitor, beta bety, and aspirin. Regarding his nutritional deficiencies, he will be recommended continued boost supplementation or Ensure b.i.d., and his B12, thiamine, and multivitamin as well as his Folvite. His pressure ulcers improved while he was hospitalized with a waffle mattress and turning regularly. The patient was evaluated by Speech Therapy due to his lack of dentures and falls and was deemed safe for a pureed diet with nectar thickened liquids. However, he did not like this thickened, and was evaluated with thin liquids and was only safe with those being given to him by spoon. Occupational Therapy helped to get us an adaptive cup for him to use at home. If he is not using that cup, he is going to need to use the thickened. DISPOSITION: Discharged home with continued care provider through previous agency and [facility]. CONDITION: Stable. MEDICATIONS: 1. Atorvastatin calcium 40 mg p.o. at bedtime. 2. Tramadol 50 mg p.o. q.6 hours p.r.n. 3. Thiamine 100 mg p.o. daily. 4. Sotalol 40 mg p.o. b.i.d., hold for SBP less than 105 or heart rate less than 60. 5. Systane eyedrops, one drop each eye daily. 6. K-Dur 20 mEq p.o. q.a.m. with meals. 7. Metoclopramide 5 mg p.o. q.4 hours p.r.n. nausea. 8. Magnesium oxide 800 mg p.o. b.i.d. 9. Lisinopril 10 mg p.o. daily. 10. DuoNeb 3 mL nebulized q.4 hours p.r.n. shortness of breath. 11. Ibuprofen 400 mg p.o. q.8 hours p.r.n. pain. 12. Folic acid 1 mg p.o. daily. 13. Fluticasone one spray each naris b.i.d. 14. Pepcid 20 mg p.o. b.i.d. 15. Diltiazem CD 120 mg daily. 16. Vitamin B12 1000 mcg p.o. daily. 17. Aspirin 325 mg p.o. daily. 18. Acetaminophen 325 mg p.o. q.4 hours p.r.n. pain, fever, or headache. The patient will see me, Dr. Darlene Tapia, on a p.r.n. basis for non-hospice related diagnoses and will assume care by [facility] for his hospice qualifying diagnosis of congestive heart failure. Job ID: [id number]
== END 2018-05-28 18:20 | disposition hospice, home (50) | DRG 310 ==
LOC: BURMED 16:10
PROVIDERS: ADMIT Family Medicine; ATTEND Family Medicine
DX: I48.91 Unspecified atrial fibrillation (principal); F10.11 Alcohol abuse, in remission; I50.9 Heart failure, unspecified; I11.0 Hypertensive heart disease with heart failure; E87.6 Hypokalemia; E83.42 Hypomagnesemia; J44.9 Chronic obstructive pulmonary disease, unspecified; E78.5 Hyperlipidemia, unspecified; I25.10 Atherosclerotic heart disease of native coronary artery without angina pectoris; E63.9 Nutritional deficiency, unspecified; L89.151 Pressure ulcer of sacral region, stage 1; L89.601 Pressure ulcer of unspecified heel, stage 1; R53.1 Weakness; R53.81 Other malaise; R13.10 Dysphagia, unspecified; Z91.81 History of falling
CPT/HCPCS: 36415; 80048; 83735; 85025; J7620

== ENCOUNTER 2020-01-25 17:01 | Outpatient (CLI) | payer MEDICARE | END 2020-01-25 17:02 | disposition home or self-care (01) | LOC: HPCALD 17:01 | PROVIDERS: ATTEND Family Medicine | DX: E05.90 Thyrotoxicosis, unspecified without thyrotoxic crisis or storm (principal) | CPT/HCPCS: 84443 ==

== ENCOUNTER 2022-02-19 13:42 | Outpatient (CLI) | payer OTHER | END 2022-02-19 13:43 | disposition home or self-care (01) | LOC: BURRAD 13:42 | PROVIDERS: ATTEND Family Medicine | DX: J44.1 Chronic obstructive pulmonary disease with (acute) exacerbation (principal) | CPT/HCPCS: 71046 ==

== ENCOUNTER 2023-04-15 15:03 | Outpatient (CLI) | payer OTHER | END 2023-04-15 15:04 | disposition home or self-care (01) | LOC: BURRAD 15:03 | PROVIDERS: ATTEND Family Medicine | DX: M54.6 Pain in thoracic spine (principal); M47.814 Spondylosis without myelopathy or radiculopathy, thoracic region; R91.8 Other nonspecific abnormal finding of lung field | CPT/HCPCS: 72072 ==

== ENCOUNTER 2024-05-22 09:24 | Outpatient (CLI) | payer OTHER ==
[2024-05-22] MEDS ORDERED: Iopamidol 370 76% 100 ML VIAL ONE (15:16)
== END 2024-05-22 09:25 | disposition home or self-care (01) ==
LOC: BURCT 09:24
PROVIDERS: ATTEND Family Medicine
DX: M47.814 Spondylosis without myelopathy or radiculopathy, thoracic region (principal); R91.1 Solitary pulmonary nodule; I25.10 Atherosclerotic heart disease of native coronary artery without angina pectoris; R59.0 Localized enlarged lymph nodes
CPT/HCPCS: 71260; Q9967

== ENCOUNTER 2025-01-13 11:16 | Emergency (ER) | payer OTHER | END 2025-01-13 12:36 | disposition home or self-care (01) | LOC: BURERS 11:16 | DX: S80.02XA Contusion of left knee, initial encounter (principal); I11.0 Hypertensive heart disease with heart failure; I50.9 Heart failure, unspecified; I25.2 Old myocardial infarction; E78.00 Pure hypercholesterolemia, unspecified; F17.210 Nicotine dependence, cigarettes, uncomplicated; Z95.1 Presence of aortocoronary bypass graft; Z95.5 Presence of coronary angioplasty implant and graft; Z79.899 Other long term (current) drug therapy; Z79.82 Long term (current) use of aspirin; W20.8XXA Other cause of strike by thrown, projected or falling object, initial encounter | CPT/HCPCS: 99283 ==

== ENCOUNTER 2025-01-14 11:40 | Outpatient (CLI) | payer OTHER | END 2025-01-14 11:41 | disposition home or self-care (01) | LOC: BURRAD 11:40 | PROVIDERS: ATTEND Family Medicine | DX: S90.02XA Contusion of left ankle, initial encounter (principal); Z91.81 History of falling; M25.472 Effusion, left ankle ==

== ENCOUNTER 2025-02-01 10:37 | Outpatient (CLI) | payer OTHER | END 2025-02-01 10:38 | disposition home or self-care (01) | LOC: BURRAD 10:37 | PROVIDERS: ATTEND Family Medicine | DX: M54.6 Pain in thoracic spine (principal); G89.29 Other chronic pain; M47.814 Spondylosis without myelopathy or radiculopathy, thoracic region; G95.20 Unspecified cord compression | CPT/HCPCS: 72072 ==